=== PATIENT | female | born 1995 | race Caucasian/White ===

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

== ENCOUNTER 2017-02-03 09:22 | Inpatient (IN) | payer MEDICAID ==
[2017-02-03] VITALS (22 sets, daily range): BP systolic 107–148; BP diastolic 60–105
[~2017-02-03] VITALS: Ht 152.4 cm; Wt 89.8 kg
--- NOTE | 2017-02-03 08:55 | NUR ---
, EDC 02/07/17 ARRIVED TO UNIT WITH MOTHER FROM OB OFFICE VISIT WHERE NURSE TOLD HER TO COME TO [facility] FOR ELEVATED BP AND MD WAS AT HOSPITAL. OBTAINED HT, WT. PT UNABLE TO VOID AT THIS TIME. STATES HX OF HEADACHE, EDEMA AND VOMITING THAT HAS INCREASED GREATLY OVER THE LAST 3 DAYS. SHE WAS IN LAST NIGHT WITH POSSIBLE SROM, BUT ALL TEST NEGATAIVE. URINE WAS NEGATIVE FOR PROTIEN AT THAT TIME WELL. PT IN BED AND STARTED EFM. DR FOFANA INTO ROOM AND SPOKE TO PT. REFLEXES +2 BLE. SVE DONE, 2 CM, -1 STATAION, AND 60% EFFACED. OBTAINED ORDERS. EXPLAINED PLAN OF CARE TO START IV, DO LABS, GET URINE SAMPLE TO CHECK, AND DO ULTRASOUND AND MONITOR BLOOD PRESSURES AND BABY ON MONITOR. SHE STATES UNDERSTANDING OF ALL. NO QUESTIONS OR CONCERNS AT THIS TIME. MOTHER REMAINS AT SIDE.
[~2017-02-03 09:22] MED LIST: IRON325 M1 PO; MACROBID100 MG PO; PRENATA3 PO; PYRIDIUM200 MG PO
--- NOTE | 2017-02-03 09:30 | NUR ---
GAVE WATER AND APPLE JUICE. CLEAR LIQUID SIPS OK PER DR FOFANA.
--- NOTE | 2017-02-03 10:08 | NUR ---
PT TO U/S VIA W/C WITH VOLENTEER. CONDITION IS STABLE.
[2017-02-03 10:14] LABS: HEMATOCRIT 31.4 % (37.0-47.0); HEMOGLOBIN 10.4 g/dl (12.0-16.0); IMMATURE GRANULOCYTES 1.5 % (0.0-1.0); MEAN CELL VOLUME 80.1 fL CALC (80.0-100.0); MEAN CORPUSCULAR HGB 26.5 pG CALC (26.0-32.0); MEAN CORPUSCULAR HGB CONC 33.1 g/L CALC (32.0-36.0); NEUT# 8.37 thou/uL (2.00-7.15); RED BLOOD COUNT 3.92 mill/uL (4.20-5.60); RED CELL DISTRI WIDTH 13.6 % (11.5-15.5)
--- NOTE | 2017-02-03 10:35 | NUR ---
PT RETURNED TO UNIT. BPP 01/24. RESUMED EFM. CONDITION IS STABLE. PT STATES NO NEEDS AT THIS TIME. PT DOES STATE NOW THAT EVERY ONCE IN A WHILE WITH HEADAHCE HER VISION IS BLURRY. BUT NO OTHER VISUAL DISTURBANCES.
[2017-02-03 10:39] LABS: ALBUMIN 3.1 g/dL (3.2-5.0); ALKALINE PHOSPHATASE 239 u/l (38-126); ANION GAP 13 (6-22 (CALC)); BILIRUBIN, TOTAL 0.2 mg/dL (0.0-1.4); BUN 8 mg/dL (8-21); BUN/CREATININE RATIO 15 (12-20 (CALC)); CALCIUM 9.1 mg/dL (8.4-10.2); CARBON DIOXIDE 20 mmol/l (22-30); CHLORIDE 106 mmol/l (95-108); CREATININE 0.6 mg/dL (0.5-1.0); GFR > 60 ML/MIN (>=60 (CALC)); GFR FOR AFR.AMER. > 60 ML/MIN (>=60 (CALC)); GLUCOSE 70 mg/dL (70-106); POTASSIUM 4.2 mmol/l (3.5-5.1); SGOT/AST 15 u/l (14-36); SGPT/ALT 19 u/l (9-52); SODIUM 136 mmol/l (137-146); TOTAL PROTEIN 5.8 g/dL (6.3-8.2)
--- NOTE | 2017-02-03 11:05 | NUR ---
PT UP TO BRP, VOIDED. COLLECTED URINE SAMPLE.
[2017-02-03 11:31] LABS: URINE BILIRUBIN - DIPSTICK NEGATIVE (NEGATIVE); URINE BLOOD DIPSTICK NEGATIVE (NEGATIVE); URINE CLARITY CLEAR; URINE COLOR YELLOW; URINE EPITHELIAL CELLS FEW EPI/hpf (0-FEW); URINE GLUCOSE - DIPSTICK NEGATIVE (NEGATIVE); URINE KETONE NEGATIVE (NEGATIVE); URINE LEUK ESTERASE NEGATIVE (NEGATIVE); URINE MUCUS FEW hpf (NONE-FEW); URINE NITRITE - DIPSTICK NEGATIVE (Negative); URINE PROTEIN - DIPSTICK 30 mg/dL (NEG-TRACE); URINE UROBILINOGEN - DIPSTICK 0.2 E.U./dL (0.2)
[2017-02-03 11:32] LABS: BARBITURATES NEGATIVE (NEGATIVE); COCAINE NEGATIVE (NEGATIVE); METHADONE NEGATIVE (NEGATIVE); OXCYCODONE NEGATIVE (NEGATIVE); TETRAHYDROCANNABIONOL NEGATIVE (NEGATIVE); TRICYLIC ANTIDEPRESSANTS NEGATIVE (NEGATIVE)
--- NOTE | 2017-02-03 11:40 | NUR ---
DR FOFANA IN TO SEE PT. DISCUSSED TREATMENT OPTIONS. MD AND PT DECIDED TO DO START INDUCTION OF LABOR FOR PIH. >39 WEEKS GESTATION. OBTAINED ORDERS TO START PITOCIN INDUCTION. MOTHER REMAINS AT SIDE AND SUPPORTIVE.
--- NOTE | 2017-02-03 12:12 | NUR ---
PCN STARTED FOR GBS +, THEN STARTED PITOCIN AT 2 MILIUNITS/MIN. PAIN IS 5/10 IN LOWER BACK. SHE STATES HER HEADACHE IS GONE NOW. MOTHER REMAINS AT SIDE AND SUPPORTIVE. UTERUS HAS SOFT RESTING TONE.
--- NOTE | 2017-02-03 12:17 | NUR ---
PT UP TO BRP, VOIDED AND RETURNED TO BED.
--- NOTE | 2017-02-03 12:52 | NUR ---
INCREASED PITOCIN TO 4 MILIUNITS/MIN. PAIN IS STILL A 5/10. TOLERATING WELL. LAUGHING AND JOKING AND ON PHONE. NO CTX NOTED YET.
--- NOTE | 2017-02-03 12:57 | NUR ---
PT UP TO BRP, VOIDED AND RETURNED TO BED. TO LEFT SIDE. DIFFICULTY MAINTAINING FHT TRACING. CHANGED TO THE KATARINA/CmxtwentyI MONITORING SYSTEM. PICKING UP WELL.
--- NOTE | 2017-02-03 13:20 | NUR ---
PT OOB AND TO BRP, THEN WALKING IN HALLS WITH MOTHER.
--- NOTE | 2017-02-03 13:40 | NUR ---
PT IN BED ON RIGHT SIDE, EATING POPCYCLE. INCREASED PITOCIN TO 6 MILIUNITS/MIN.
--- NOTE | 2017-02-03 14:13 | NUR ---
PITOCIN INCREASED TO 8 MILIUNITS/MIN. PT HAVING SOME MILD CTX, NO PAIN WITH THEM AT THIS TIME. UP TO BRP.
--- NOTE | 2017-02-03 14:40 | NUR ---
PT COMPLAINING OF CHEST PRESSURE, ALSO HEADACHE WITH PAIN OF 5/10. REASSURED PT TO RELAX AND TO LEFT SIDE. LIGHTS OFF AND DEEP SLOW BREATHING.
--- NOTE | 2017-02-03 14:46 | NUR ---
CALLED DR FOFANA AND EXPLAINED ABOUT CHEST PRESSURE. OBTAINED ORDER FOR NUBAIN AND EKG. INFORMED PT OF THIS, SHE IS REFUSING NUBAIN. NO CTX PAIN NOW. GOING TO TRY AND REST FOR A LITTLE WHILE. SATS ARE WNL, BP AND HR WNL.
--- NOTE | 2017-02-03 15:02 | NUR ---
PITOCIN INCREASED TO 10 MILIUNITS/MIN. CTX ARE MILD. PT NOT FEELING THEM. CHEST PAIN HAS ALMOST COMPLETLY RESOLOVED. UP TO BRP.
--- NOTE | 2017-02-03 15:13 | NUR ---
HARDLY ANY CHEST PRESSURE NOW. PT IN BED ON RIGHT SIDE.
--- NOTE | 2017-02-03 15:28 | NUR ---
PT STATES NO MORE CHEST PRESSURE, CTX PAIN IS NOW 4/10, MILD INTENSITY. SOFT RESTING TONE. EKG BEING DONE NOW.
--- NOTE | 2017-02-03 15:50 | NUR ---
PITOCIN INCREASED TO 12 MILIUNITS/MIN. PAIN IS 6/10/ TOLERATING WELL, LAUGHING AND VISITING WITH MOTHER AND ON PHONE.
--- NOTE | 2017-02-03 16:20 | NUR ---
PT UP WALKING IN HALLS. BRP, VOID
--- NOTE | 2017-02-03 16:47 | NUR ---
PAIN IS NOW 6/10. PITOCIN INCREASED TO 14 MILIUNITS/MIN. CTX CONTINUE TO BE MILD, WITH SOFT RESTING TONE.
--- NOTE | 2017-02-03 17:21 | NUR ---
PT AWAKE AND QUIET IN BED, VISITING WITH MOTHER. CONDITION IS STABLE. PAIN IS 5/10 WITH CTX NOW MILD TO MODERATE, SOFT RESTING TONE. PITOCIN INCREASED TO 16 MILIUNITS/MIN. NO NEEDS AT THIS TIME.
--- NOTE | 2017-02-03 17:50 | NUR ---
DR FOFANA IN TO SEE PT. STONEYE DONE, 2 CM, 70%, -1 STATION. DISCUSSED PLAN OF CARE TO STOP PITOCIN AT 1900, THEN PT CAN HAVE REGULAR DIET TONIGHT AND REST THEN RESUME PITOCIN IN THE MORNING. PT IS VERY HAPPY WITH THIS PLAN OF CARE. NO FURTHER QUESTIONS OR CONCERNS AT THIS TIME.
--- NOTE | 2017-02-03 18:40 | NUR ---
PT WAS MOVED TO BR 2 AND Katey SEPULVEDA CRNA PRESENT, INTERVIEWING PT AND OBTAINING CONSENT FOR EPIDURAL AT 180. THE PT WAS POSITIONED SITTING WITH DR. FOFANA POSITIONING PT. PTS MOTHER AT BEDSIDE. PT COACHED TO CALM WITH GOOD RESPONSE. MEDIA SALES CONSULTANT ON. VS REPORT GIVEN TO FLAME HARDENER 1809 1809 BP 140/86, P 85 O2 97% RR 17, FHT 115, DR FOFANA REMOVES MONITOR 1819 BP 142/84, CATHETER PLACED FHT 120, BY AUSCULTATION 1820, TEST DOSE GIVEN. BP 144/78,O2 98%, P 92,RR 18 FHT NOT ABLE TO OBTAIN, REQUESTED THAT WE NOT CHECK UNTIL EPIDURAL COMPLETED 1822 BOLUS DOSE GIVEN. SEE VS INTERVENTION FOR MATERNAL VS. 1826, MONITOR REAPPLIED FHT 114, DR. FOFANA PRESENT AND AWARE OF LOW BASELINE PRIOR TO EPIDURAL, NO DECELS 1830 FHT 115, PLANNING TO PLACE INTERNAL IUPC AND FSE, EXPLAINED TO PT. 1835 FHT 125 , MINIMAL VARIABILITY BUT ACCEL PRESENT AT 1839 1840 FHT 124 WITH FSE PLACED AT 1838, VARIABILITY MINIMAL BUT ACCEL PRESENT, NO DECELS. SEE LABOR PROGRESS CHARTING
--- NOTE | 2017-02-03 18:51 | NUR ---
D/C'ED PITOCIN. CTX ARE MILD/MODERATE WITH SOFT RESTING TONE. PT UP AT SIDE OF BED ON PHONE AND VISITING WITH MOTHER. NO NEEDS AT THIS TIME. CONDITION IS STABLE. REPORT IS READY FOR NEXT SHIFT.
--- NOTE | 2017-02-03 19:15 | NUR ---
INTRODUCED SELF TO PT. ASSESSMENT COMPLETED, WNL WITH NON-PITTING PEDAL EDEMA. ICE WATER PROVIDED. PT JUST FINISHED EATING ABDUL'S THAT MOTHER BROUGHT IN. MOTHER AT BEDSIDE VISITING. PLAN OF CARE REVIEWED WITH PT- AGREES WITH PLAN. INFORMED PT WOULD CONTACT DR. FOFANA ABOUT DISCONTINUING THE FLUIDS AND ANTIBIOTICS UNTIL PITOCIN IN AM AND DECREASE VS TO Q4 HOURS WITH INTERMITTENT EFM. ENCOURAGED PT TO CALL WITH NEEDS.
--- NOTE | 2017-02-03 20:04 | NUR ---
IVF D/C'D AND SALINE LOCKED IV. PT'S MOTHER AT BEDSIDE BUT PLANNING TO GO HOME FOR THE EVEN AND WILL BE BACK IN AM WITH PT'S BREAKFAST. EFM DISCONTINUED. NO NEEDS EXPRESSED. ENCOURAGED TO CALL WITH NEEDS.
--- NOTE | 2017-02-03 20:31 | NUR ---
PT REQUESTED TO BE PLACED BACK ON EFM WASN'T FEELING THE BABY MOVE SINCE THE PITOCIN STARTED AND STATED THAT THE BEEPING OF THE HEART BEAT WAS REASSURING FOR HER. EFM RESUMED PER PT REQUEST. ICE WATER PROVIDED. LINENS CHANGED. PT STATES WILL SHOWER IN THE MORNING WHEN I WAKE HER AT 0500 FOR VITALS. ENCOURAGED PT TO CALL WITH NEEDS.
--- NOTE | 2017-02-03 20:55 | NUR ---
PT REQUESTED TO TURN TO RIGHT SIDE. ICE PACKS APPLIED TO BACK PT STATES HAS CONSTANT BACK PAIN. PT DENIES ANY OTHER NEEDS AT THIS TIME. ENCOURAGED TO CALL WITH NEEDS.
[2017-02-04] VITALS (61 sets, daily range): BP systolic 66–204; BP diastolic 32–114
--- NOTE | 2017-02-04 00:30 | NUR ---
PT STATES NEEDS TO USE THE BATHROOM FOR BOTH VOID AND STOOL. ICE PACKS ON BEDSIDE TABLE. PT STATES HELPED BUT WASN'T STAYING POSITIONED AND WAS GETTING COLD ON BACK. VS TAKEN. PT OOB TO BR. PT STATES IS GOING TO EAT THE REST OF WHAT HER MOM BROUGHT HER FROM [employer], DENIES NEEDING IT REHEATED. NO OTHER NEEDS EXPRESSED. ENCOURAGED PT TO CALL WITH NEEDS.
--- NOTE | 2017-02-04 05:39 | NUR ---
VITALS SIGNS TAKEN. ENCOURAGED PT TO GET OOB TO SHOWER. PT STATES IS GOING TO WAIT FOR MOTHER TO ARRIVE SHE HAS HER TOLIETRIES. PT DENIES ANY NEEDS AT THIS TIME. ENCOURAGED PT TO CALL WITH ANY NEEDS OR CONCERNS.
--- NOTE | 2017-02-04 06:05 | NUR ---
PT OOB TO BR TO SHOWER. ASSITED PT TO ROOM 207 AND PRODUCTS, GOWN AND TOWELS PROVIDED. PT AMBULATED TO ROOM IN STABLE CONDITION. ENCOURAGED PT TO CALL WITH NEEDS.
--- NOTE | 2017-02-04 07:06 | NUR ---
REPORT RECEIVED FROM Dung DELANEY RN. PTS MOTHER AT BEDSIDE. PITOCIN RESTARTED AT 2.0 MU/MIN , VERIFIED WITH Dennis PRINCE RN. PT EXPRESSES UNDERSTANDING OF PLAN OF CARE. FETUS IN ROT POSITION BY HANDY'S. IMPORTANCE OF MOBILITY IN LABOR DISCUSSED. PT REQUESTS TO SLEEP AT PRESENT.
--- NOTE | 2017-02-04 07:50 | NUR ---
PT SLEEPING ON HER RIGHT SIDE. MOTHER ASLEEP IN RECLINER. IV PCN DOSE INFUSING IV SITE APPEARS HEALTHY
--- NOTE | 2017-02-04 08:09 | NUR ---
PT CONTINUES TO SLEEP SOUNDLY ON RIGHT SIDE WITH PILLOWS. HER MOTHER IS SLEEPING WITHOUT ROUSING IN RECLINER
--- NOTE | 2017-02-04 08:40 | NUR ---
DR FOFANA HERE. PT BACK TO SLEEP ALREADY AFTER PELVIC EXAM. SHE IS NOT FEELING CONTRACTIONS EXCEPT "A CRAMP WHEN EXAMINIED" PTS MOTHER CONTINUES TO SLEEP IN RECLINER.
--- NOTE | 2017-02-04 09:16 | NUR ---
PT CONTINUES TO SLEEP SOUNDLY. PT MOTHER LEFT UNIT TO GO FOR COFFEE
--- NOTE | 2017-02-04 10:02 | NUR ---
PT CONTINUES TO SLEEP SOUNDLY. PTS MOTHER HAS RETURNED AND IS BEDSIDE READING
--- NOTE | 2017-02-04 11:36 | NUR ---
PT OOB TO WALK WITH HER MOTHER. IV SITE APPEARS HEALTHY. NOVII WIRELESS MONITORING WITH GOOD SIGNAL. PT FEELING MILD CRAMPING ONLY
--- NOTE | 2017-02-04 12:56 | NUR ---
PT REQUESTS TO REST IN BED. SHE IS CHATTY AND ON CELL PHONE. MOTHER AT BEDSIDE ON HER CELL PHONE. "NOT FEELING MUCH" PITOCIN IS AT 16.0 MU PER MD ORDER. EXPLAINED TO PT THAT LABOR IS MORE THAN "ONE HORMONE" THAT THE BODY HAS TO BE READY TO RESPOND. PTS MOTHER EXPRESSES UNDERSTANDING AND SUPPORTIVE. CTX PALPATE VERY MILD WITH SOME PICKED UP BY THE NOVII THAT ARE NOT EVEN PALPABLE
--- NOTE | 2017-02-04 13:15 | NUR ---
DR. FOFANA HERE AND AROM PERFORMED. PT INFORMED BY RN BEFORE EXAM THAT HE WAS GOING TO [facility]OM. EXPLAINED TO PT AND MOTHER RISKS AND BENEFITS OF AROM. PT REQUESTS AROM. MOTHER EXPRESSING THAT SHE WANTS DELIVERY TODAY "A CEASAREAN IS OK" DISCUSSED RISKS/BENEFITS OF AND WHY IT IS GOOD TO AVOID UNLESS MEDICALLY NECESSARY. PT VERBALIZING THAT SHE IS NOT FEELING CONTRACTIONS BUT 'WANTS IT OVER WITH" ENCOURAGEMENT GIVEN, SUPPORT OFFERED PRN
--- NOTE | 2017-02-04 13:29 | NUR ---
STARTING TO FEEL CONTRACTIONS AND "GROSSED OUT" BY FLUID LEAKING. GIVEN PADS AND UNDERWEAR. FREQUENT POSITION CHANGE ENCOURAGED AND POSITIONS FOR LABOR DESCRIBED. LABOR SUPPORT INFO GIVEN TO MOTHER.
--- NOTE | 2017-02-04 14:05 | NUR ---
WARM PACKS GIVEN AND POSITION CHANGE SUGGESTED. PT STATES 'I JUST WANT TO SLEEP AND I WANT PAIN MEDICATION NOW" GIVEN NUBAIN 10MG IV AND PT ASSISTED IN REPOSITIONING ON LEFT SIDE. PT EXPRESSING IRRITATION WITH HER MOTHER OVER MOTHER TAKING PICTURES WITH HER CELL PHONE. EXPLAINED TO MOTHER THAT PT HAS RIGHT TO DECIDE WHAT SHE NEEDS AND WANTS OR DOES NOT WANT. MOTHER NOW SITTING QUIETLY IN RECLINER. PT REQUESTS LIGHTS OFF
--- NOTE | 2017-02-04 14:21 | NUR ---
PT RESTING QUIETLY. MOTHER READING IN RECLINER AT BEDSIDE
--- NOTE | 2017-02-04 14:46 | NUR ---
PT ASKING TO AMBULATE. STILL SLEEPY FROM NUBAIN. ENCOURAGED TO REST, CHRISTA CARE AND BED CHANGE DONE. LEAKING CLEAR FLUID
--- NOTE | 2017-02-04 14:56 | NUR ---
PITOCIN DECREASED TO 8.0 IN VIEW OF >5 CTX IN 10 MIN. PT DOES NOT FEEL ALL OF THE CTX. PT IS ON THE [employer] WIRELESS WHICH IS MORE SENSITIVE. PT SITTING ON BIRTHING BALL. NAUSEATED. VOMITED SMALL AMT. COMFORT MEASURES DISCUSSED
--- NOTE | 2017-02-04 15:41 | NUR ---
EMESIS FOR 100 CC CLEAR SECRETIONS. BP ELEVATED WITH CONTRACTION AND VOMITING. WILL REEVALUATE
--- NOTE | 2017-02-04 16:01 | NUR ---
UTERINE CONTRACTION MONITOR ELECTRODE NOT FUNCTIONING. CLEANED, REAPPLIED. PT WILL CHANGE POSITION AND SEE IF IT IMPROVES SHE DOES NOT WANT BELTED MONITORING. OOB TO VOID.
--- NOTE | 2017-02-04 16:25 | NUR ---
PT REQUESTING MORE PAIN MEDICINE. CERVIX EFFACED WELL, 3-4CM WITH VERTEX -2, ROT- ROP. POSITIONS FOR ROTATION SUGGESTED
--- NOTE | 2017-02-04 16:38 | NUR ---
LEFT LATERAL ENCOURAGED IN VIEW OF REST AFTER NUBAIN AND BP ELEVATION WITH PTS AGITATION. SHE REFUSES AND INSISTS ON STAYING IN CHAIR. CONTRACTIONS PALPATE MODERATE.
--- NOTE | 2017-02-04 16:57 | NUR ---
PT GETS VERY AGITATED WITH CONTRACTION AND THEN DOZES, DIFFICULT TO GET BP BETWEEN CTX. COACHED IN RELAXATION AND ATTEMPTED TO GET HER TO REPOSITION. EXPLAINED TO PT THAT IF BP REMAINS ELEVATED SHE WILL NEED OTHER MEDICATION. BP WITH PORTABLE CUFF 138/86, REFLEXES REMAIN 1-2+ BILAT. MOTHER REMAINS AT BEDSIDE
--- NOTE | 2017-02-04 17:21 | NUR ---
PT ASKING ABOUT OPTIONS FOR PAIN RELIEF. DISCUSSED ALL NON MEDICINAL AND MEDICINAL INCLUDING EPIDURAL. PT STATING SHE WOULD RATHER HAVE C/SECTION. PRAISED THAT SHE IS DOING WELL QUIETLY WORKING WITH HER CONTRACTIONS AND EXPLAINED STRONGER CONTRACTIONS WITH ACTIVE LABOR ARE EXPECTED. RISKS AND BENEFITS OF C/SECTION (IF MEDICALLY INDICATED) DISCUSSED. ENCOURAGED TO TRY DIFFERENT POSITIONS AND WARM PACKS AGAIN. MOTHER PRESENT BUT NOT INTERACTING WITH PT. ENCOURAGED TO ASK QUESTIONS AND LET ME KNOW WHAT SHE DECIDES. PITOCIN DECREASED TO 2.0 MU IN VIEW OF FREQUENT CONTRACTIONS WHICH PALPATE STRONGER.
--- NOTE | 2017-02-04 18:00 | NUR ---
PT REQUESTING EPIDURAL. Katey SEPULVEDA CRNA HERE, DR. FOFANA COMING IN. PT COACHED WITH CONTRACTIONS BUT EXPRESSING PANIC, YELLING, NOT RESPONSIVE TO HELP. PT MOVED TO BR #2 IN WHEELCHAIR, ACCOMPANIED BY HER MOTHERM, SHOUTING AND CRYING. ATTEMPTED TO REASSURE PT AND EXPLAIN EPIDURAL RELIEF. 6-7 CM, DILATED. REASSURED HER THAT THIS IS EXCELLENT PROGRESS FOR FIRST BABY. MOTHER ATTEMPTING TO REASSURE HER BUT PT UNRESPONSIVE TO ANY ATTEMPS.
--- NOTE | 2017-02-04 18:15 | NUR ---
EPIDURAL EXPLAINED TO PT. CONTINUES TO CRY WITH CONTRACTIONS AND HOLD BREATH, Jermain SEPULVEDA AT BEDSIDE 1814
--- NOTE | 2017-02-04 18:21 | NUR ---
EPIDURAL TEST DOSE
--- NOTE | 2017-02-04 18:23 | NUR ---
EPIDURAL BOLUS BY RN BIRTHING, DR. FOFANA PRESENT AND POSITIONING PT. PTS MOTHER AT BEDSIDE
--- NOTE | 2017-02-04 18:28 | NUR ---
PT MUCH CALMER WITH RELIEF. FHT AUSCULTATED AT 115, DR FOFANA PRESENT AND AWARE OF PREVIOUS LOW BASELINE PITOCIN REMAINS OFF. IV BOLUS CONTINUES (STARTED PRE EPIDURAL) IV SITE APPEARS HEALTHY
--- NOTE | 2017-02-04 18:35 | NUR ---
ESCALONA , IUPC AND FSE PLACED BY DR. FOFANA. ESCALONA DRAINING CLEAR YELLOW URINE
--- NOTE | 2017-02-04 18:40 | NUR ---
SEE DETAILED NOTE ENTERED 02/03/17 INSTEAD OF 02/04/17
--- NOTE | 2017-02-04 18:50 | NUR ---
REPORT TO MUSHTAQ DELANEY RN AT BEDSIDE. PT DOZING. BASELINE 120 WITH MINIMAL VARIABILITY BUT ACCELS AND NO DECELS. FSE AND IUPC FUNCTIONING. PITOCIN REMAINS OFF.
--- NOTE | 2017-02-04 18:54 | NUR ---
PT RESTING AND DOZING AFTER EPIDURAL IN BR #2 MOTHER AT BEDSIDE. PT EXPRESSING HAPPINESS WITH RELIEF.
--- NOTE | 2017-02-04 19:00 | NUR ---
ASSESSMENT COMPLETED- WNL. EPIDURAL IN PLACE. PT STATES RELIEF WITH NO PAIN EXPRESSED. DERMATONES T5-T6. REGULAR SINUS RHYTHM. ESCALONA DRAINING YELLOW URINE AT BEDSIDE. MOTHER AT BEDSIDE AND SUPPORTIVE. PT TURNED SEMI-BURGOS TO FACILITE EVEN EPIDURAL SENSORY COVERAGE. ICE WATER PROVIDED. NO NEEDS EXPRESSED. ENCOURAGED PT TO CALL WITH NEEDS.
--- NOTE | 2017-02-04 20:00 | NUR ---
PT TURNED TO LEFT SIDE WITH PEANUT BALL BTW LEGS. MOTHER AT BEDSIDE AND SUPPORTIVE.
--- NOTE | 2017-02-04 20:02 | NUR ---
PT EMESIS OF 300. PT CONTINUES TO FEEL NAUSEA AND SHIVERING. EDUCATED ON LABOR PROGRESS AND THAT OXYTOCIN WILL CAUSE SHIVERING AND NAUSEA, BUT WILL CALL FOR AN ANTI-EMESIS ORDER.
--- NOTE | 2017-02-04 20:15 | NUR ---
DR. FOFANA NOTIFIED OF PT EMESIS- ORDERS RECEIVED FOR PHENERGAN 25MG IV Q 4 HOURS PRN. ASKED IF DR. FOFANA WOULD LIKE FOR ME TO RESTART THE PITOCIN MVU 90. INFORMED PITOCIN WAS STOPPED WHEN FHT BASELINE CHANGED AND WEREN'T TRACING FHT WELL, PRIOR TO IUPC & FSE PLACEMENT. INFORMED HIM FHT MINIMAL VARIBILITY WITH ACCELS. ORDERS TO RESTART PITOCIN RECEIVED.
--- NOTE | 2017-02-04 20:43 | NUR ---
PITOCIN RESTARTED AT 2 MILIUNITS VERIFIED BY Aidan LEE RN.
--- NOTE | 2017-02-04 20:49 | NUR ---
PT EMESIS, 100 ML. COOL WASH CLOTH PROVIDED TO WIPE MOUTH. MOTHER AT BEDSIDE AND SUPPORTIVE.
--- NOTE | 2017-02-04 20:50 | NUR ---
Katey SEPULVEDA CRNA CALLED & PAGED OVERHEAD FOR EPIDURAL REBOLUS, PT RATING PAIN 9/10 ON LEFT SIDE.
--- NOTE | 2017-02-04 21:00 | NUR ---
PHENERGAN IV GIVEN FOR N/V, SEE EMAR. Katey SEPULVEDA CRNA AT BEDSIDE TO EVALUATE PT PAIN AT 2054. NOTIFIED Katey SEPULVEDA CRNA OF PT'S SVE /0 AT 2037. EPIDURAL REBOLUS STARTED AT 2099.
--- NOTE | 2017-02-04 21:01 | NUR ---
DR. FOFANA AT BEDSIDE. SVE /+2. WILL LABOR PT DOWN WAS JUST HAD EPIDURAL REBOLUS.
--- NOTE | 2017-02-04 21:20 | NUR ---
PT TURNED TO RIGHT SIDE WITH PEANUT BALL BTW LEGS. MOTHER AT BESIDE AND SUPPORTIVE. PT DENIES ANY PAIN.
--- NOTE | 2017-02-04 21:34 | NUR ---
[facility] UA REFERENCE AFTER TURN WAS NOT REGISTERING MUV.
--- NOTE | 2017-02-04 22:25 | NUR ---
DR. FOFANA AT BEDSIDE. PATIENT VOMITING.
--- NOTE | 2017-02-04 22:55 | NUR ---
ASSISTED VAGINAL DELIVERY OF VIABLE MALE . KIWI ASSISTED X 2 SEPERATE ATTEMPTS, WITH 5 PULLS ON FIRST KIWI AND 2 PULLS ON SECOND ONE, TO SUPPORT MATERNAL EFFORTS. PATIENT ALTERNATIVELY PUSHING AND VOMITING.
--- NOTE | 2017-02-04 23:03 | NUR ---
DR. FOFANA AT BEDSIDE AT 2226. PT PLACED IN STIR-UPS FOR PUSHING CANNOT MOVE AND HOLD BILATERAL LEGS. 2230 PT VOMITING 200 ML. IUPC REMOVED BY DR. FOFANA AT 2232, THEN PT PUSHING WITH CONTRACTIONS. PT C/O UNABLE TO CATCH BREATH DURING PUSHING AND WAS CONTINUED TO HAVE MUCUS EMESIS. US AND TOCO APPLIED BY THIS RN AND FSE REMOVED BY DR. FOFANA AT 2242. PT PUSHING EFFECTIVELY WITH CONTRACTIONS. [address] FOFANA, 5 PULLS WITH CONTRACTIONS WHILE PT PUSHING. KIWI REMOVED AT [address] FOFANA WHOM STATES THAT THE SUCTIONS WASN'T WORKING WELL AND REQUESTED ANOTHER KIWI. NO POP-OFFS. KIWI #[address] PROVIDED [address] APPLIED BY DR. FOFANA AT 2253 WITH TWO PULLS. ASSISTED VAGINAL DELIVERY AT 2254 OF VIABLE MALE INFANT. PLACENTA DELIVERED AT 2301 AND PITOCIN 10 UNITS ADDED 10 UNITS OF PITOCIN HUNG FROM INDUCTION PER DR. FOFANA'S VERBAL ORDER. PITOCIN RUNNING AT 999 ML/HR. ZOFRAN GIVEN FOR CONTINUED EMESIS AT 2302.
--- NOTE | 2017-02-04 23:54 | NUR ---
UTERINE ATONY ASSESSED. FUNDUS WOULD GET FIRM WITH MASSAGE THEN WOULD IMMEDIATELY GO BOGGY ONCE MASSAGE WAS STOPPED. ADDITIONAL 10 UNITS OF PITOCIN ADDED TO INITIAL PITOCIN INDUCTION BAG FOR A TOTAL OF 30 UNITS IN LR AT 999 ML/HR AT 2312. UTERUS BOGGY. CYTOTEC GIVEN AT 2314 FOR SECOND DOSE. ADDITIONAL 10 UNITS OF PITOCIN GIVEN IV AT 2317. 2318 OR TEAM CALLED FOR EXAMINATION UNDER ANESTHESIA. Katey SEPULVEDA CRNA AT BEDSIDE AND INITIATED BOLUS FOR OR. BLOOD PRESSURE DROPPED TO 79/32 WITH VOMITING. Katey CASPER CRNA AWARE. LR BOLUS INITATE IN ADDITION TO 30 UNITS OF PITOCIN INFUSING. EPHEDRINE INITATED BY Katey SEPULVEDA CRNA. SEE ANESTHESIA RECORD. ORDERS RECEIVED TO TYPE AND CROSS TWO UNITS AND GET ADDITIONAL IV. CLINICAL SUPPORT TEAM CALLED. HEMABATE 250 MCG GIVEN IM AT 2330 AND CLINICAL SUPPORTIVE TEAM ARRIVED WITH FORERST BILLSVACCINE CUSTOMER REPRESENTATIVE AND Elieser BOND RN. BP CUFF REMOVED TO START SECOND IV LINE. REPLACED AND CP ELEVATED TO 194/111 AND PT C/O HORRIBLE HEADACHE. VERSED 2MG GIVEN PER Katey SEPULVEDA CRNA ORDER AT 2344. TEMP 99.8. SECOND IV STARTED AT 2340, 18G RH. BLOOD INITIATED WITH SECOND IV IN RH. PT MOVED VIA BED TO DOWNSTAIRS OR. HANDED PT OFF TO OR AT 2354.
[2017-02-05] VITALS (17 sets, daily range): BP systolic 111–149; BP diastolic 61–87
--- NOTE | 2017-02-05 | NUR ---
BLOOD MEASURED FROM DRAPE AND LAPS TO QUANTIFY TO 797 FROM DELIVERY AND IMMEDIATE RECOVERY.
[2017-02-05 01:20] LABS: HEMATOCRIT 31.5 % (37.0-47.0); HEMOGLOBIN 10.3 g/dl (12.0-16.0)
--- NOTE | 2017-02-05 01:25 | NUR ---
0125: MAGNESIUM SULFATE 4 GRAM BOLUS STARTED PER POLICY AND PROCEDURE PER MED PUMP PER PHYSICIAN ORDERS. MAGNESIUM BOLUS VERIFIED BY THIS NURSE AND SHELLIE PRINCE RN IN PACU. PT A&O X 3. ESCALONA DRAINING DARK PANCHO URINE. IV FLUIDS AND BLOOD INFUSING ON MED PUMPS. 0138: PT TRANSPORTED TO OB IN BED TO ROOM 207 WITH 3 ASSIST.
--- NOTE | 2017-02-05 01:47 | NUR ---
PT ARRIVED TO ROOM VIA BED FROM OR. PT TRANSFERED TO PP BED VIA BED SHEETS PT STATES CAN NOT LIFT LEGS. DEMATOMES T7-T8. MAGNESIUM MAINTANENCE DOSE RUNNING AT 1G/HR, WITH PITOCIN 20 UNITS. INITIAL PRBC UNIT STILL RUNNING AT THIS TIME. PT C/O PAIN IN ABDOMEN WHEN CHECKED FUNDUS. FUNDUS FIRM WITH MASSAGE WITH MODERATE AMOUNT OF BLEEDING. CHRISTA CARE PROVIDED. ASSESSEMENT COMPLETED. ANOTHER ESCALONA PLACED IN OR AND DRAINING AT BEDSIDE. MOTHER AT BEDSIDE AND SUPPORTIVE. WILL CONTINUE TO MONITOR.
--- NOTE | 2017-02-05 03:07 | NUR ---
DR. FOFANA CALLED TO VERIFY IF WANTED SECOND UNIT OF PRBC. DR. FOFANA STATES WANTED TO SEE H/H AND SHE DOES NOT NEED IT AT THIS TIME. PT MAY HAVE CLEAR LIQUIDS LONG VAGINAL BLEEDING APPROPRIATE.
--- NOTE | 2017-02-05 03:10 | NUR ---
IV SITE IN RT. HAND ACCIDENTALLY REMOVED BY PATIENT. DRESSING APPLIED TO SITE. NO REDNESS/SWELLING AT INSERTION SITE.
--- NOTE | 2017-02-05 04:45 | NUR ---
MAGNESIUM MAINTANENCE CHECKS WITH FLUIDS. FUNDUS FIRM U/2. CHRISTA CARE PROVIDED. PT RESTING QUIETLY WITH INFANT SKIN TO SKIN. POPSICLE PROVIDED PER PT REQUEST. [place]INE APPLIED TO PERINEUM FOR PERINEAL PAIN. MOTHER AT BEDSIDE AND SUPPORTIVE. NO NEEDS EXPRESSED. ENCOURAGED TO CALL WITH NEEDS.
[2017-02-05 06:54] LABS: HEMATOCRIT 25.5 % (37.0-47.0); HEMOGLOBIN 8.6 g/dl (12.0-16.0); IMMATURE GRANULOCYTES 0.8 % (0.0-1.0); MEAN CELL VOLUME 81.5 fL CALC (80.0-100.0); MEAN CORPUSCULAR HGB 27.5 pG CALC (26.0-32.0); MEAN CORPUSCULAR HGB CONC 33.7 g/L CALC (32.0-36.0); NEUT# 18.96 thou/uL (2.00-7.15); RED BLOOD COUNT 3.13 mill/uL (4.20-5.60); RED CELL DISTRI WIDTH 14.1 % (11.5-15.5)
--- NOTE | 2017-02-05 07:00 | NUR ---
REPORT RECEIVED VIA SBAR. PATIENT DENIES ANY VISUAL DISTURBANCES OR EPIGASTRIC PAIN. VS, DTRs, AND LOC CHARTED. PATIENT STATES THAT SHE CURRENTLY HAS A HEADACHE BUT IT IS NOT OF NEW ONSET AND SHE HAS HAD IT SINCE DELIVERY. PATIENT STATES THAT IT HAS DECREASED WITH PAIN MEDICATIONS. PATIENT DENIES ANY NEED FOR PAIN MEDICATION BUT DID REQUEST AN ICE PACK WHICH WAS PLACED BEHIND HER NECK. PLAN OF CARE REVIEWED WITH PATIENT AND PATIENT VERBALIZED UNDERSTANDING AND NO QUESTIONS OR CONCERNS AT THIS TIME.
--- NOTE | 2017-02-05 07:30 | NUR ---
MAGNESIUM INFUSION RATE AND LINE CHECKED WITH CARLOS MANUEL DEJESUS.
--- NOTE | 2017-02-05 07:45 | NUR ---
STOCK CUTTER CALLED [facility]NTO UNIT FOR MAGNESIUM LEVEL DRAW.
--- NOTE | 2017-02-05 09:00 | NUR ---
PATIENT BEING ASSISTED WITH BY NURSERY NURSE. PATIENT CONTINUES TO DENY ANY SYMPTOMS OF MAGNESIUM TOXICITY; SEE CHARTING. ESCALONA DRAINING WELL TO GRAVITY.
--- NOTE | 2017-02-05 10:00 | NUR ---
[facility]STA[facility] PERFORMED FOR PATIENT AT THIS TIME, PATIENT TOLERATED ACTIVITY WELL AND WAS ABLE TO TURN AND REPOSITION HERSELF TO ASSIST WITH [facility]STA[facility] PERFORMANCE. PATIENT STATES THAT HER HEADACHE IS ALL OVER HER HEAD AND SHE RATES IS 5/10 BUT DENIES THE NEED FOR PAIN MEDICATION. SHE STATES THAT THE ICE PACK BEHIND HER NECK HELPS RELIEVE IT. PATIENT STATES THAT HER LEFT ARM IS SORE AND IT HAS BEEN SINCE YESTERDAY. THIS IS THE ARM THAT CURRENTLY HAS HER IV SITE. THE SITE/ARM LOOK HEALTHY WITHOUT REDNESS, SWELLING, OR WARMTH. PATIENT INFORMED THAT SINCE THE SITE IS INFUSING WELL WE WILL NOT REMOVE IT UNTIL A NEW IV SITE IS OBTAINED. PATIENT INFORMED THAT I WILL HAVE SOMEONE FROM ER COME UP TO THE UNIT TO INITIATE A NEW SITE IN THE OPPOSITE ARM. PATIENT VERBALIZED UNDERSTANDING AND STATES THAT IS FINE. PATIENT DENIES ANY FURTHER NEEDS AT THIS TIME.
--- NOTE | 2017-02-05 10:12 | NUR ---
DR. FOFANA CALLED UNIT AND HE WAS UPDATED ON PATIENT'S STATUS. ORDERS RECEIVED TO ADVANCE PATIENT'S DIET TO A REGULAR DIET AT THIS TIME.
--- NOTE | 2017-02-05 10:30 | NUR ---
CAROLINA RN ONTO UNIT FROM ER FOR NEW IV STICK. PATIENT VERBALIZED TO CAROLINA THAT SHE DOES NOT WANT TO BE RE-POKED ANYMORE FOR A NEW IV AND JUST WANTED TO BE SURE THAT THE SITE SHE CURRENTLY HAS IS WORKING WELL. PATIENT REASSURED BY THIS NURSE AND CAROLINA THAT HER SITE HAS BEEN INFUSING WELL AND APPEARS HEALTHY.
--- NOTE | 2017-02-05 11:00 | NUR ---
DR. FOFANA IN TO SEE PATIENT. ORDERS RECEIVED TO DISCONTINUE IV INFUSION, REMOVE ESCALONA CATHETER, AND KEEP IV SALINE LOCKED.
--- NOTE | 2017-02-05 11:15 | NUR ---
IV MAGNESIUM SULFATE AND PITOCIN INFUSIONS DISCONTINUED AT THIS TIME AND IV SALINE LOCKED. PATIENT MEDICATED FOR PAIN REQUESTED; SEE EMAR. PATIENT DENIES ANY FURTHER NEEDS AT THIS TIME.
--- NOTE | 2017-02-05 12:57 | NUR ---
MOTHER ASSISTED WITH PLACING BABY SKIN TO SKIN AND DISCUSSED WAKING BABY FOR FEEDING. SOUND ASLEEP. MOTHER TALKING TO BABY LOVINGLY
--- NOTE | 2017-02-05 13:25 | NUR ---
ESCALONA CATHETER REMOVED AT THIS TIME AFTER EMPTYING. PATIENT UP AND OUT OF BED TO SHOWER, PATIENT HAD A STEADY GATE AND REQUIRED NO ASSISTANCE, LINENS WERE CHANGED ON BED WELL. PATIENT DENIES ANY NEEDS AT THIS TIME.
--- NOTE | 2017-02-05 17:24 | NUR ---
PATIENT MEDICATED FOR HER HEADACHE REQUESTED. PATIENT STATES THAT SHE THINKS HER BLOOD PRESSURE IS HIGH AND THAT'S WHY SHE HAS A HEADACHE. BLOOD PRESSURE OBTAINED: 117/78. PATIENT THEN STATES THAT SHE THINKS IT IS FROM THE EPIDURAL. PATIENT EDUCATED THAT A SPINAL HEADACHE GOES AWAY WHEN SHE LAYS FLAT WHICH SHE HAS STATED THAT HERS DOES NOT. PATIENT INFORMED THAT HER HEADACHE COULD BE FROM HER LACK OF SLEEP WELL HER NOT EATING SINCE SHE HAS BEEN REFUSING TO EAT HER FOOD ALL DAY AND HAS ONLY HAD LIQUIDS, SOME CEREAL, AND MCDONALDS TO EAT TODAY. PATIENT STATES SHE WILL START TO EAT MORE AND TRY TO GET SOME SLEEP.
--- NOTE | 2017-02-05 18:24 | NUR ---
PATIENT STATES THAT HER HEADACHE IS PRETTY MUCH COMPLETELY GONE AND DENIES ANY NEEDS AT THIS TIME.
--- NOTE | 2017-02-05 18:45 | NUR ---
REPORT RECEIVED FROM Aidan WALKER RN. BEDSIDE REPORTING COMPLETED. PATIENT RESTING COMFORTABLY, HOLDING INFANT, FAMILY AT BEDSIDE. SIDE RAILS UP X2, CALL CRUM WITHINREACH. NO CLINICAL NEEDS IDENTIFIED AT THIS TIME.
--- NOTE | 2017-02-05 20:45 | NUR ---
PT RESTING QUIETLY ON LEFT SIDE WHEN ENTERED THE ROOM. ROOTING. VS AND ASSESSMENT COMPLETED. FUNDUS FIRM BUT DEVIATED TO LEFT WITH SCANT BLEEDING. EDUCATED PT ON THE IMPORTANCE OF GETTING UP EVERY 2-3 HOURS TO VOID EVEN IF SHE DOESN'T FEEL THE NEED SO SHE DOESN'T CAUSE UTERUS TO BE DEVIATED AND BLEED MORE. ASSISTED PT OOB TO BR VOID. CHRISTA CARE INSTRUCTION PROVIDED. PT DEMONSTRATED CHRISTA CARE. PT STATES IT DOES BURN TO VOID. ENCOURAGED HER TO SPARY THE CHRISTA BOTTLE DURING VOID. AMERICAINE APPLIED FOR PERINEAL PAIN. PT TOLERATED WELL. THEN ONCE WALKING TO BATHROOM PT STATES PERINEUM IS BURNING AND SHE THINKS IT'S FROM THE AMERICAINE. INFORMED PT NOT TO USE IS NOT HELPFUL, BUT EXPLAINED RATIONALE FOR USE. ENCOURAGED PT TO WATCH TIGR VIDEOS AND REVIEW DISCHARGE TEACHING. PT STATES THAT SHE WANTS TO FEED AND THEN GO TO SLEEP. ENCOURAGED PT TO AT LEAST START VIDEOS WHILE SHE WAS FEEDING AND COULD CONTINUE TOMORROW. TIGR EDUCATIONAL VIDEO STARTED ASSISTED MOTHER WITH STARTING AND CLEANING BREAST PUMP TO FILOMENA NIPPLE. PT STATES SHE DOES NOT NEED ASSISTANCE WITH AT THIS TIME. NO OTHER NEEDS EXPRESSED. MOTHER AT BEDSIDE AND SUPPORTIVE. ENCOURAGED PT TO CALL WITH ANY NEEDS.
--- NOTE | 2017-02-06 04:34 | NUR ---
PATIENT C/O DIAPHORESIS, ORAL TEMPERATURE 98.3 DEG F. OFFERED REASSURANCE.
[2017-02-06 06:00] VITALS: BP 115/77
--- NOTE | 2017-02-06 06:00 | NUR ---
PT RESTING QUIETLY IN BED WITH INFANT LAYING NEXT TO HER. PT STATES WE CAN TAKE FOR TESTING, SHE NEEDS TO GET UP B/C HER RIGHT HIP HURTS FROM BEING IN THE SAME POSITION. PT ADMITS SHE HAS NOT GOT UP TO VOID EVERY 2-3 HOURS AND THAT SHE SLEPT WITH THE INFANT IN BED. EDUCATED PT ON THE RISK OF HEMORRAGE BY NOT KEEPING BLADDER EMPTY WELL THE RISK OF SIDS AND SUFFOCATION WITH INFANT IN BED. EDUCATED PT THAT IT WAS OK TO LAY WITH INFANT IF AWAKE OR IF PT'S MOTHER WAS UP WATCHING, IF NOT THAT THE NEEDED TO BE PLACED IN OPEN CRIB. PLACED IN OPEN CRIB. VS TAKEN CHARTED. PT DENIES ANY NEEDS FOR PAIN MEDICATION AT THIS TIME. MOTHER SLEEPING IN BEDSIDE RECLINER. ENCOURAGED PT TO CALL WITH NEEDS.
--- NOTE | 2017-02-06 07:13 | NUR ---
MOTHER SLEEPING SOUNDLY ON BEDSIDE ROUNDS. PTS MOTHER SLEEPING IN RECLINER. REPORT RECEIVED FROM Dung DELANEY RN
--- NOTE | 2017-02-06 08:00 | NUR ---
DR. FOFANA HERE. PT COMPLAINING OF HEADACHE OF 7, PT STATES THAT IT STARTED AFTER THE EPIDURAL BUT PT PREVIOUSLY HAD C/O LOPEZ DAYS BEFORE INDUCTION OF LABOR AND DURING LABOR, SHE STATES THAT CAFFEINE DOES NOT HELP BUT LORTAB WORKS. DR. FOFANA REQUESTED DEDICATED INTERMODAL TRUCK DRIVER EVALUATE PT ALTHOUGH PT STATES LOPEZ WORSE WHEN SHE LAYS FLAT. ICE PACK TO HER NECK HELPS. ICE PACK, GIVEN
[2017-02-06 08:15] VITALS: BP 115/77
--- NOTE | 2017-02-06 08:47 | NUR ---
Katey SEPULVEDA, DEMOLITION SPECIALIST HERE TO EVALUATE PT AND STATES THAT LOPEZ IS NOT SPINAL OR EPIDURAL RELATED AND EXPLAINED THIS TO PT AND MOTHER. PT AGAIN STATES THAT LOPEZ IS WORSE WHEN SHE LIES FLAT AND BETTER WHEN SHE SITS UP. LORTAB GIVEN FOR RELIEF AND DISCUSSED ALTERNATING THE LORTAB AND THE MOTRIN WITH THE PT AND HER MOTHER
--- NOTE | 2017-02-06 10:49 | NUR ---
COMPLETED VIDEOS, ASKING QUESTIONS ABOUT HER BLEEDING AND WHAT TO EXPECT THE NEXT COUPLE OF WEEKS, BLEEDING LIGHT AT PRESENT. SELF CARE INSTRUCTIONS IN BOOKLET REVIEWED.
--- NOTE | 2017-02-06 13:23 | NUR ---
PT REQUESTING ICE PACK FOR NECK. SHE STATES THAT SHE ALWAYS HAS LOPEZ. SHE IS LAUGHING AND VISITING WITH FAMILY AND VISITORS. SHE STATES THAT LUI (HOLDING THE BABY) IS FATHER OF BABY AND REQUESTS INFO RE:Paterinity TESTING
--- NOTE | 2017-02-06 13:30 | NUR ---
GIVEN OPTIONS FOR PATERNITY TESTING BOOKLETS
--- NOTE | 2017-02-06 14:47 | NUR ---
PT REMINDED TO INCREASE FLUIDS. PT RESTING WATCHING TV HOLDING BABY. PT HAS BEEN PUTTING IN PILLOW, EXPLAINED TO PT THAT INFANT SINKS DEEP IN AND CAN OCCLUDE THE AIRWAY. SAFE SUPINE SLEEP DISCUSSED AND SAFE SLEEP BOOKLET POINTED OUT. PTS MOTHER AT BEDSIDE.
--- NOTE | 2017-02-06 15:15 | NUR ---
QC LAB TECHNICIAN RECOMMENDS LOW FAT DIET. PT HAS BEEN EATING ABDUL'S FF AND BURGERS SINCE ADMISSION 3 DAYS AGO AND STATES THAT SHE EATS WHAT SHE LIKES. DISCUSSED AGAIN HEALTHY EATING SUGGESTIONS AND POINTED OUT NUTRITION INFO IN A NEW BEGINNING BOOKLET
[2017-02-06 15:17] VITALS: BP 118/80
--- NOTE | 2017-02-06 16:56 | NUR ---
PT AWAKE AND HAS HER BED HIGH IN THE AIR. SAFETY GUIDELINES TO AVOID RISK OF FALLS DISCUSSED AND ASKED TO LOWER BED. SHE COMPLIED DENIES NEED FOR PAIN MEDICATION.
--- NOTE | 2017-02-06 17:54 | NUR ---
REPORT PREPARED FOR ONCOMING SHIFT AND CHART REVIEWED
--- NOTE | 2017-02-06 18:55 | NUR ---
REPORT RECEIVED FROM Sly VELOZ RN ON PT STATUS. PT SITTING IN BED WATCHING TV. CALL LIGHT WITHIN REACH AND BED IN LOW POSITION.
[2017-02-06 19:38] VITALS: BP 144/91
--- NOTE | 2017-02-06 19:38 | NUR ---
PT CONTINUES TO COMPLAIN OF HEADACHE. ICE PACK GIVEN PER PT REQUEST. IBUPROFEN GIVEN. SEE E-MAR FOR DOCUMENTATION. PHYSICAL ASSESSMENT COMPLETED. PAPERS SIGNED. REVIEWED CIRC CARE WITH PT. PT CRYING INTERMITTENTLY STATING THAT "IT HAS BEEN A ROUGH DAY". REASSURANCE GIVEN. ENCOURAGED PT TO SLEEP WHILE IS SLEEPING. PT AGREES.
--- NOTE | 2017-02-06 20:40 | NUR ---
DR. FOFANA HERE TO SEE PT. PT CONTINUES TO COMPLAIN OF HEADACHE TO PHYSICIAN. NO NEW ORDERS WRITTEN.
--- NOTE | 2017-02-06 23:00 | NUR ---
BABY CONTINUES TO BE FUSSY. PT GETTING FRUSTRATED. REFUSES TO LET NURSE TAKE INTO NURSERY. PT STATES HOW TIRED SHE IS. MEWBORN HAS PACIFIER IN MOUTH. ENCOURAGEMENT AND REASSURANCE GIVEN TO PT.
--- NOTE | 2017-02-07 01:40 | NUR ---
PT CANNOT SLEEP DUE TO BEING SO FUSSY. PT STATES NURSES CAN TAKE TO NURSERY. STATES HE BREASTFED FOR A HOUR. INFANT TO NURSERY. NO CRYING OR DISCOMFORT NOTED FROM .
--- NOTE | 2017-02-07 05:10 | NUR ---
PT SLEEPING WITH ON HER CHEST. AWAKENS WHEN NURSE COMES INTO ROOM. STATES HAS BEEN SLEEPING BUT SHE HAS NOT. ENCOURAGEMENT GIVEN. UP AD HARRY TO USE RESTROOM.
--- NOTE | 2017-02-07 07:00 | NUR ---
RECEIVED CARE OF PT. SITTING UP IN BED. PLAN OF CARE REVIEWED. PT RATING PAIN 8/10 AT HEAD, DENIES PAIN MEDICATION. STATES ICE PACKS BEHIND NECK HELP MORE WITH PAIN. ICE PACK PREPARED. DENIES CRAMPING. LOCHIA LIGHT AND MUCOUSY, DENIES CLOTS, DENIES TRICKLING OF BLOOD. FUNDUS FIRM AT 1 BELOW UMBILICUS. SKIN WNL. NO BRUISING, NO PETECHIAE. PT DENIES WEAKNESS, FAINTING, OR DIZZINESS. STATES SHE HAS BEEN AMBULATING IN ROOM. VITAL SIGNS CHARTED. DISCHARGE PLANNING PAPERS REVIEWED. PT WITH NO QUESTIONS AT THIS TIME. CALL LIGHT WITHIN REACH.
[2017-02-07 07:35] VITALS: BP 135/87
--- NOTE | 2017-02-07 08:45 | NUR ---
MEDICATED WITH MOTRIN FOR HEADACHE. MOTHER VISITING AT THIS TIME. WILL CONTINUE TO MONITOR.
[2017-02-07 10:11] VITALS: BP 125/75
--- NOTE | 2017-02-07 13:00 | NUR ---
Dr Kevin in to see pt. Received new orders.
[2017-02-07] MEDS ORDERED: IBUPROFEN600 MG PO (13:35)
[2017-02-07] MEDS ORDERED: FIORICET PO (13:37)
[2017-02-07] MEDS ORDERED: LORTAB 5/3255 MG PO (13:38)
--- NOTE | 2017-02-07 14:15 | NUR ---
Discharge instructions given. Patient verbalizes understanding of same. Discharged in stable condition via Wheelchair to Home with mother. All belongings sent with pt. Prescriptions for Motrin, Lortab, and Fioricet given. Pt to call and schedule follow-up appt with Dr Kevin in 2 weeks. Instructed to review control options prior to appt. Tdap immunization given.
== END 2017-02-07 14:15 | disposition home or self-care (01) | DRG 767 ==
LOC: OB 09:22 → OBOP 09:22 → OB 09:23 → OBOP 11:39 → OB 11:40
PROVIDERS: ADMIT Obstetrics & Gynecology; ATTEND Obstetrics & Gynecology
PROC: 3E033VJ Introduction of Other Hormone into Peripheral Vein, Percutaneous Approach (ICD-10-PCS; 2017-02-03)
PROC: 10D07Z6 Extraction of Products of Conception, Vacuum, Via Natural or Artificial Opening (ICD-10-PCS; principal; 2017-02-04)
PROC: 10907ZC Drainage of Amniotic Fluid, Therapeutic from Products of Conception, Via Natural or Artificial Opening (ICD-10-PCS; 2017-02-04)
PROC: 30233N1 Transfusion of Nonautologous Red Blood Cells into Peripheral Vein, Percutaneous Approach (ICD-10-PCS; 2017-02-04)
PROC: 0UDB7ZZ Extraction of Endometrium, Via Natural or Artificial Opening (ICD-10-PCS; 2017-02-05)
PROC: 0UQC7ZZ Repair Cervix, Via Natural or Artificial Opening (ICD-10-PCS; 2017-02-05)
DX: O13.3 Gestational [pregnancy-induced] hypertension without significant proteinuria, third trimester (principal); O71.3 Obstetric laceration of cervix; O72.1 Other immediate postpartum hemorrhage; O69.81X0 Labor and delivery complicated by cord around neck, without compression, not applicable or unspecified; R09.81 Nasal congestion; R11.10 Vomiting, unspecified; O99.62 Diseases of the digestive system complicating childbirth; O99.334 Smoking (tobacco) complicating childbirth; F17.210 Nicotine dependence, cigarettes, uncomplicated; O99.52 Diseases of the respiratory system complicating childbirth; Z3A.39 39 weeks gestation of pregnancy; Z37.0 Single live birth
CPT/HCPCS: J2540; P9016

== ENCOUNTER 2017-03-13 21:03 | Emergency (ER) | payer MEDICAID ==
[~2017-03-13] VITALS: Ht 152.4 cm; Wt 81.8 kg
[~2017-03-13 21:03] MED LIST changes: +FIORICET PO; +IBUPROFEN600 MG PO; +LORTAB 5/3255 MG PO
[2017-03-13 22:17] LABS: HEMATOCRIT 29.7 % (37.0-47.0); HEMOGLOBIN 9.4 g/dl (12.0-16.0); IMMATURE GRANULOCYTES 0.3 % (0.0-1.0); MEAN CELL VOLUME 79.4 fL CALC (80.0-100.0); MEAN CORPUSCULAR HGB 25.1 pG CALC (26.0-32.0); MEAN CORPUSCULAR HGB CONC 31.6 g/L CALC (32.0-36.0); NEUT# 4.33 thou/uL (2.00-7.15); RED BLOOD COUNT 3.74 mill/uL (4.20-5.60); RED CELL DISTRI WIDTH 15.1 % (11.5-15.5)
[2017-03-13 22:28] LABS: ALBUMIN 4.1 g/dL (3.2-5.0); ALKALINE PHOSPHATASE 80 u/l (38-126); ANION GAP 18 (6-22 (CALC)); BILIRUBIN, TOTAL 0.4 mg/dL (0.0-1.4); BUN 8 mg/dL (8-21); BUN/CREATININE RATIO 11 (12-20 (CALC)); CALCIUM 9.4 mg/dL (8.4-10.2); CARBON DIOXIDE 23 mmol/l (22-30); CHLORIDE 109 mmol/l (95-108); CREATININE 0.7 mg/dL (0.5-1.0); GFR > 60 ML/MIN (>=60 (CALC)); GFR FOR AFR.AMER. > 60 ML/MIN (>=60 (CALC)); GLUCOSE 106 mg/dL (70-106); POTASSIUM 3.7 mmol/l (3.5-5.1); SGOT/AST 18 u/l (14-36); SGPT/ALT 29 u/l (9-52); SODIUM 146 mmol/l (137-146); TOTAL PROTEIN 6.7 g/dL (6.3-8.2)
[2017-03-13] MEDS ORDERED: CYTOTEC200 MCG PO (23:53)
[2017-03-13] MEDS ORDERED: KEFLEX500 MG PO (23:53)
[2017-03-13] MEDS ORDERED: PERFECT IRON25 MG PO (23:53)
[2017-03-14 00:02] VITALS: BP 144/88
== END 2017-03-14 00:41 | disposition home or self-care (01) | DRG 761 ==
LOC: ED 21:03
PROVIDERS: Emergency Medicine
DX: N93.9 Abnormal uterine and vaginal bleeding, unspecified (principal)